=== PATIENT | male | born 1955 | race Caucasian/White ===

== ENCOUNTER → 2025-01-10 11:21 | Outpatient (REF) | payer OTHER, SELFPAY | LOC: HWRAD 11:21 | PROVIDERS: ATTENDING PHYSICIAN Nurse Practitioner Family | DX: N39.41 Urge incontinence (principal); R35.0 Frequency of micturition; R35.1 Nocturia; Z12.5 Encounter for screening for malignant neoplasm of prostate | CPT/HCPCS: 76770 ==

== ENCOUNTER → 2025-02-13 13:11 | Outpatient (REF) | payer OTHER, SELFPAY | LOC: HWRAD 13:11 | PROVIDERS: ATTENDING PHYSICIAN Urology; FAMILY PHYSICIAN Nurse Practitioner Family | DX: N13.30 Unspecified hydronephrosis (principal); N40.0 Benign prostatic hyperplasia without lower urinary tract symptoms; R33.9 Retention of urine, unspecified | CPT/HCPCS: 74176 ==

== ENCOUNTER → 2025-05-31 08:14 | Outpatient (REF) | payer MEDICARE, OTHER, SELFPAY ==
[2025-05-31 09:07] LABS: Hematocrit 45.4 % (39.0-52.0); Hemoglobin 15.4 g/dL (13.0-18.0); Mean Corp Hgb Conc. 33.9 g/dL (33.0-37.0); Mean Corpuscular Volume 94.6 fL (80.0-94.0); Platelet Count 183 10^3/uL (130-400); Red Cell Dist. Width 12.6 % (11.5-14.5)
[2025-05-31 09:30] LABS: Blood Urea Nitrogen 12 mg/dl (9-20); Calcium 9.4 mg/dl (8.4-10.2); Carbon Dioxide 28 mmol/L (22-30); Chloride 105 mmol/L (98-107); Glucose 111 mg/dl (70-99); Potassium 4.8 mmol/L (3.5-5.1); Sodium 140 mmol/L (135-145); eGFR > 60.00
== END ==
LOC: SDSPAT 08:14
PROVIDERS: ATTENDING PHYSICIAN Urology; FAMILY PHYSICIAN Nurse Practitioner Family
DX: Z01.818 Encounter for other preprocedural examination (principal)
CPT/HCPCS: 80048; 85027; 93005

== ENCOUNTER 2025-06-06 06:23 | Day surgery (SDC) | payer MEDICARE, OTHER, SELFPAY ==
[2025-05-31 14:13] VITALS: BMI 25.3
[2025-06-06] VITALS (18 sets, daily range): BP systolic 105–136; BP diastolic 60–84; BMI 25.3
[2025-06-06] MEDS: NORMOSOL-R/PLASMALYTE-A 1000 IV (10:13)
[2025-06-06] MEDS: DILAUDID 0.25 MG IV (14:52)
[2025-06-06] MEDS: LR 1000 IV (17:42)
[2025-06-06] MEDS: ZOFRAN 4 MG IV (17:53)
[2025-06-06] MEDS: SENOKOT 17.2 MG PO (19:53)
[2025-06-06] MEDS: TYLENOL 650 MG PO (21:08)
[2025-06-07] MEDS: LR 1000 IV (00:05)
--- NOTE | 2025-06-07 02:34 | DOWNTIME ---
There was a [employer] Downtime on 06/07/2025 from 0100 to 06/07/2025 at 0215. Downtime documentation of patient's care, including medication administrations, has been reconciled in the electronic record per guidelines. Refer to the
patient's paper chart under the miscellaneous tab to see printed paper medication records and downtime forms.
[2025-06-07 03:10] VITALS: BP 102/53
[2025-06-07 06:24] LABS: Hematocrit 39.9 % (39.0-52.0); Hemoglobin 13.2 g/dL (13.0-18.0)
[2025-06-07 06:47] LABS: Blood Urea Nitrogen 12 mg/dl (9-20); Calcium 8.7 mg/dl (8.4-10.2); Carbon Dioxide 23 mmol/L (22-30); Chloride 104 mmol/L (98-107); Estimated Creatinine Clearance 98 ml/min; Glucose 142 mg/dl (70-99); Potassium 4.5 mmol/L (3.5-5.1); Sodium 135 mmol/L (135-145); eGFR > 60.00
[2025-06-07 07:07] VITALS: BP 98/51
[2025-06-07] MEDS: CRESTOR 10 MG PO (07:58)
[2025-06-07] MEDS: SENOKOT 17.2 MG PO (07:58)
--- NOTE | 2025-06-07 08:40 | W.PN.URO.CBU ---
Today's Communication / Plan
-
Discharge
Assessment / Plan
-
70M POD 1 s/p TURP
Burns out of trial of void
Post void bladder scan
Discharge home
Diagnosis
-
Date of Service: June 07, 2025
-
Patient Diagnosis: BPH
Post Op Day: 1 s/p TURP
Subjective
-
no events overnight
pain minimal
hematuria minimal
Objective
-
Vital Signs
Temp Pulse Resp BP Pulse Ox
98.4 F 65 19 98/51 98
06/07/25 07:07 06/07/25 07:07 06/07/25 07:07 06/07/25 07:07 06/07/25 07:07
Intake and Output
06/06/25 06/07/25 06/08/25
06:59 06:59 06:59
Intake Total 2760 / 2760
Output Total 2200 / 2200
Balance 560 / 560
Intake:
Oral fluids 960 / 960
IV fluids (Total) 1800 / 1800
normosol 150 / 150
Output:
True Urine Output from [facility] 2200 / 2200
Laboratory Results
06/07/25 05:40
06/07/25 05:40
Physical Exam
-
General - well developed, well nourished, no acute distress
Chest - clear bilaterally
Abdomen - soft, non-tender, positive bowel sounds, no CVAT, no incisional pain or distention
Burns - clear urine
Skin - warm & dry with no rash
Neuro - AOx3, no motor deficits
Extremities - no clubbing, no cyanosis, no edema
--- NOTE | 2025-06-07 09:40 | CM ---
Cm reviewed medical records. Patient denied history of VN, SNF or DME. Patient's will provide transportation.
PLAN: home with no needs.
[2025-06-07 11:35] VITALS: BP 109/48
== END 2025-06-07 12:00 | disposition home or self-care (01) ==
LOC: SDS 06:23
PROVIDERS: ATTENDING PHYSICIAN Urology; FAMILY PHYSICIAN Nurse Practitioner Family
DX: N40.0 Benign prostatic hyperplasia without lower urinary tract symptoms (principal)
CPT/HCPCS: 52601; 80048; 85014; 85018; 88305; 88344